=== PATIENT | male | born 1950 | race Two or more races ===

== ENCOUNTER 2022-05-27 11:22 | Emergency (ER) | payer OTHER, BC, SELFPAY ==
[2022-05-27 11:28] VITALS: BP 212/108; PULSE 95; O2SAT 96
[2022-05-27 11:30] VITALS: BP 175/81; PULSE 95; RESP 17; TEMP 36.6; O2SAT 98; BMI 27.3
--- NOTE | 2022-05-27 11:33 | ECG_ITS ---
Test Reason : chest pain Blood Pressure : / mmHG Vent. Rate : 093 BPM Atrial Rate : 093 BPM P-R Int : 148 ms QRS Dur : 096 ms QT Int : 360 ms P-R-T Axes : 055 013 059 degrees QTc Int : 447 ms Normal sinus rhythm Incomplete right bundle branch block Septal infarct , age undetermined Abnormal ECG No previous ECGs available Referred By: Ameena Gant Electronically Signed By:RAMIREZ JAEGER
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
[2022-05-27 12:30] VITALS: BP 146/87; PULSE 88; RESP 16; O2SAT 98
== END 2022-05-27 12:58 | disposition home or self-care (01) ==
PROVIDERS: Emergency Provider Emergency Medicine
DX: Z04.1 Encounter for examination and observation following transport accident (principal); R07.89 Other chest pain
CPT/HCPCS: 93005; 99283; 99284